=== PATIENT | female | born 1940 | race Two or more races ===

== ENCOUNTER 2023-09-30 11:16 | Emergency (ER) | payer OTHER ==
[~2023-09-30] VITALS: Ht 157.5 cm; Wt 59.0 kg
[2023-09-30] MEDS ORDERED: GALANTAMINE HBR24 MG (11:28)
[2023-09-30] MEDS ORDERED: JANUMET XR 50-1 EAC1 (11:29)
[2023-09-30] MEDS ORDERED: METFORMIN HCL500 M4 (11:29)
[2023-09-30] MEDS ORDERED: METOPROLOL SUCC25 MG (11:29)
[2023-09-30] MEDS ORDERED: DEXAMETHASONE SODIUM PHOSPHATE 4 MG/ML VIAL IV STA (12:01)
[2023-09-30] MEDS ORDERED: DIPHENHYDRAMINE HCL 50 MG/ML VIAL 1ML IV STA (12:02)
[2023-09-30 12:37] LABS: HEMATOCRIT 38.4 % (36.0-45.00); HEMOGLOBIN 12.8 g/dL (12.0-15.00); MEAN CELL VOLUME 92.2 fL (80.00-100.00); MEAN CORPUSCULAR HEMOGLOBIN 30.7 pg (27.00-32.0); MEAN CORPUSCULAR HGB CONC 33.3 g/dl (32.0-36.0); PLATELET COUNT 379 K/uL (150-450); RED BLOOD COUNT 4.16 M/uL (4.00-6.00); RED CELL DISTRIBUTION WIDTH 14.8 % (11.5-14.5)
[2023-09-30 12:41] LABS: URINE APPEARANCE Cloudy; URINE BILIRRUBIN Negative (NEGATIVE); URINE BLOOD Trace; URINE COLOR Yellow; URINE GLUCOSE Negative (NEGATIVE); URINE LEUKOCYTE Moderate; URINE NITRATE Positive; URINE PROTEIN Negative (NEGATIVE); URINE UROBILINOGEN 0.2 E.U./dl
[2023-09-30 12:45] LABS: URINE EPITHELIAL CELLS 29.6 uL (0.0-38.8); URINE RBC 95.4 uL (0.0-20.8); URINE WBC 102.4 uL (0.0-23.2)
[2023-09-30 13:23] LABS: CALCIUM 8.8 mg/dL (8.5-10.1); CREATININE SERUM 0.56 mg/dL (0.55-1.02); GFR 103.9; POTASSIUM 3.91 mEq/L (3.5-5.1)
[2023-09-30 13:44] LABS: URINE BACTERIA > 9821.2 uL (0.0-1933)
[2023-09-30] MEDS ORDERED: CEFTRIAXONE SODIUM 2,000 MG VIAL IV ONE (15:30)
== END 2023-09-30 15:59 | disposition home or self-care (01) ==
LOC: ER 11:16
PROVIDERS: General Practice
DX: R21 Rash and other nonspecific skin eruption (principal); N39.0 Urinary tract infection, site not specified; E11.9 Type 2 diabetes mellitus without complications; Z79.84 Long term (current) use of oral hypoglycemic drugs
CPT/HCPCS: 36415; 96365; 99282; J0696; J1100; J1200

== ENCOUNTER 2024-04-28 17:11 | Emergency (ER) | payer OTHER ==
[~2024-04-28] VITALS: Ht 152.4 cm; Wt 60.8 kg
[~2024-04-28 17:11] MED LIST: GALANTAMINE HBR24 MG; JANUMET XR 50-1 EAC1; METFORMIN HCL500 M4; METOPROLOL SUCC25 MG
[2024-04-28 18:28] LABS: HEMATOCRIT 37.7 % (36.0-45.00); HEMOGLOBIN 12.9 g/dL (12.0-15.00); MEAN CELL VOLUME 90.8 fL (80.00-100.00); MEAN CORPUSCULAR HEMOGLOBIN 31.1 pg (27.00-32.0); MEAN CORPUSCULAR HGB CONC 34.2 g/dl (32.0-36.0); PLATELET COUNT 381 K/uL (150-450); RED BLOOD COUNT 4.15 M/uL (4.00-6.00); RED CELL DISTRIBUTION WIDTH 13.8 % (11.5-14.5)
[2024-04-28 18:36] LABS: PH,URINE 5.5 (5.0-8.0); URINE APPEARANCE Turbid; URINE BILIRRUBIN Negative (NEGATIVE); URINE BLOOD Small; URINE COLOR Yellow; URINE KETONE Trace (NEGATIVE); URINE LEUKOCYTE Large; URINE NITRATE Positive; URINE PROTEIN Trace (NEGATIVE)
[2024-04-28 18:37] LABS: URINE EPITHELIAL CELLS 70.1 uL (0.0-38.8); URINE RBC 39.5 uL (0.0-20.8); URINE WBC 2624.7 uL (0.0-23.2)
[2024-04-28 18:45] LABS: PROTHROMBIN TIME 10.9 SECONDS (9.0-11.5)
[2024-04-28 18:50] LABS: ALBUMIN 3.4 gm/dL (3.4-5.0); BILIRUBIN TOTAL 0.37 mg/dL (0.3-1.2); CREATININE SERUM 0.68 mg/dL (0.55-1.02); GFR 82.84; GLOBULINA 3.9 G/DL (2.4-3.5); POTASSIUM 4.35 mEq/L (3.5-5.1); TOTAL PROTEIN 7.3 gm/dL (6.4-8.2)
[2024-04-28 18:56] LABS: URINE BACTERIA > 9821.5 uL (0.0-1933); URINE CAST 1.22 uL (0.0-1.40); URINE GLUCOSE 500 MG/DL (NEGATIVE)
[2024-04-28 18:56] LABS: C-REACTIVE PROTEIN 0.32 MG/DL (0.00-0.29)
[2024-04-28] MEDS ORDERED: PEPCID AC20 MG PO (19:25)
== END 2024-04-28 19:32 | disposition home or self-care (01) ==
LOC: ER 17:13
PROVIDERS: General Practice
DX: S90.32XA Contusion of left foot, initial encounter (principal); X58.XXXA Exposure to other specified factors, initial encounter; Y93.89 Activity, other specified; Y92.89 Other specified places as the place of occurrence of the external cause; Y99.8 Other external cause status; N39.0 Urinary tract infection, site not specified; R53.81 Other malaise; I10 Essential (primary) hypertension

== ENCOUNTER 2024-05-20 10:24 | Outpatient (CLI) | payer OTHER ==
[~2024-05-20 10:24] MED LIST changes: +PEPCID AC20 MG PO
== END 2024-05-20 10:33 | disposition home or self-care (01) ==
LOC: MAMO-SONO 10:24
PROVIDERS: ATTEND Obstetrics & Gynecology
DX: N60.11 Diffuse cystic mastopathy of right breast (principal); N60.12 Diffuse cystic mastopathy of left breast; Z12.31 Encounter for screening mammogram for malignant neoplasm of breast